=== PATIENT | female | born 1980 | race Caucasian/White ===

== ENCOUNTER 2018-08-08 02:15 | Inpatient (IN) | payer BC ==
[~2018-08-08] VITALS: Ht 162.7 cm; Wt 78.2 kg
[2018-08-08] VITALS (45 sets, daily range): BP systolic 86–164; BP diastolic 44–113; PULSE 67–149; TEMP 97.6–99.7
--- NOTE | 2018-08-08 03:00 | NUR ---
0230- Patient ambulatory to [facility]DR-4 from ED with and staff. Patient complains of contractions every 3-4 minutes starting at 2300. Patient is visibly hunched over in pain and yells out during contractions. Patient denies bleeding, spotting, or leaking of fluids. Membranes were swept on 08/04/18 in the office. Assessment completed. BP increased. Mail Handlers Supervisor and remain at bedside. Patient is requesting to get into [facility]. I informed patient we require a reactive NST before she is able to enter the [facility]. 0245- SVE /-2 by this RN. 0255- updated. Orders for admission entered. 0300- Consents signed. IV started by YOLI Laird.
--- NOTE | 2018-08-08 03:00 | NUR ---
PT UP TO BATHROOM. FOLLOWING BATHROOM, IV ATTEMPTED BUT UNSUCCESSFUL X3. HARDWOOD FINISHER TO COME ATTEMPT.
[2018-08-08 04:10] LABS: BASO % 0.2 % (0.0-2.0); GRAN # 14.2 (1.4-6.5); GRAN % 84.7 % (42.2-75.2); HEMOGLOBIN 14.1 g/dl (12.5-16.0); LYMPH # 1.5 (1.2-3.4); LYMPH % 9.2 % (20.0-51.0); MEAN CELL VOLUME 86 fl (80.0-100.0); MEAN CORPUSCULAR HEMOGLOBIN 31 pg (27.0-31.0); MEAN CORPUSCULAR HGB CONC 36 g/dl (33.0-37.0); MEAN PLATELET VOLUME 10.7 fl (7.4-10.4); MONO # 0.8 (0.1-0.6); MONO % 4.9 % (1.7-9.3); PLATELET COUNT 208 K/mm3 (130-400); RED BLOOD COUNT 4.55 M/mm3 (4.10-5.30); REDCELL DISTRIBUTION WIDTH-CV 12.1 % (11.5-14.5)
--- NOTE | 2018-08-08 04:12 | NUR ---
PT OFF MONITOR AT THIS TIME TO USE HOTTUB.
[2018-08-08] MEDS ORDERED: PRENATAL MVI (04:42)
--- NOTE | 2018-08-08 06:30 | NUR ---
Ambulates to the bathroom and back. Stands at bedside with quantity surveyor and spouse.
--- NOTE | 2018-08-08 06:30 | NUR ---
Sits up in bed, alert. Moans with contractions. Spouse and screen vent binder at bedside. Denies any needs at this time.
--- NOTE | 2018-08-08 07:00 | NUR ---
0715 Dr. Casey here, visits with patient and family. Denies any needs at this time.
--- NOTE | 2018-08-08 07:30 | NUR ---
Continues to breathe through contractions. Spouse and meat and seafood clerk at bedside. Denies any needs at this time.
--- NOTE | 2018-08-08 08:00 | NUR ---
Ambulates to the bathroom and back. Stands at bedside with manager of allied health services.[address] Casey come in and check her. Dr. Casey here, vag exam done. Reports dilated to eight. Encouraged to use different positions because of baby being posterior.
--- NOTE | 2018-08-08 08:30 | NUR ---
0840 Ambulates to the bathroom and back. Uses peanut ball positioned to right side. Continues to breathe through contractions. Denies any needs at this time.
--- NOTE | 2018-08-08 10:30 | NUR ---
[address] Casey to come in and visit about options for pain. Dr. Casey here, visits with patient. 1100 Patient and family decide to get epidural. Anesthesia notified. 1110 Anesthesia here, visits with patient.1122 Space obtained and single shot given per anesthesia Gabriela Joiner c.r.n.a.
--- NOTE | 2018-08-08 11:00 | NUR ---
Continues to sit up for epidural.
--- NOTE | 2018-08-08 11:30 | NUR ---
heart tones down in the sixtys to seventys. O28L on, repositioned right to left, to knee chest. Dr. Casey notified of heart tones. Repositioned to back per Dr. Casey. 1145 Tebuterline 0.25 mg sq given by Lashae garzon. heart rate back to 150s.
--- NOTE | 2018-08-08 11:45 | NUR ---
1155 Anesthesia notified of blood pressure of 106/56. States to given ephedrine. 1200 Ephedrine 10 mg iv given as ordered.
--- NOTE | 2018-08-08 12:15 | NUR ---
Rests in bed, alert. States feeling better. Contractions less frequent.
--- NOTE | 2018-08-08 12:45 | NUR ---
heart tones down in the 90-110. Repositioned patient. Pit off per Dr. Casey. O28L continues to be on.
--- NOTE | 2018-08-08 13:15 | NUR ---
Dr. Casey notified of patients pulse of 130. Temperature checked 99.4 O. Also let her know that heart rate at 160s.
--- NOTE | 2018-08-08 13:45 | NUR ---
Rests in bed with eyes closed. Resperations even and unlabored. Spouse and fibreglass laminator at bedside.
--- NOTE | 2018-08-08 14:30 | NUR ---
1779 Dr. Casey here, visits with patient. Starts pushing with patient.
--- NOTE | 2018-08-08 15:00 | NUR ---
Pushing with contractions. Orders to start pitocin 2 mill units. Pitocin 2 lamine units iv started as ordered.
--- NOTE | 2018-08-08 15:30 | NUR ---
Dr. Casey in room, pushes with patient. heart tones down in the 90-100s for two minutes., then back up to 170s.
--- NOTE | 2018-08-08 15:45 | NUR ---
Pitocin off per Dr. Casey. Visits with patient about section. Patient and spouse agree with section. quality lab technician and nursery, notified about section. 1600 Anesthesia her to give dosing for section. 1607 To o.r. with this nurse, Ada spence, spouse and athletic trainer.
--- NOTE | 2018-08-08 17:45 | NUR ---
To pacu via bed with anesthesia Gabriela. Report given by anesthesia. Monitors on. Father with baby in pacu.
--- NOTE | 2018-08-08 18:00 | NUR ---
Rests in bed with eyes closed. Resperations even and unlabored. Father in chair with baby skin to skin. Dr. Mejia her checking baby.
--- NOTE | 2018-08-08 18:15 | NUR ---
To room 210 via bed with two r.n. Rests in bed with eyes closed. Arouses with verbal stimuli. Spouse at bedside with baby. Target Protection Specialist in room.
--- NOTE | 2018-08-08 22:15 | NUR ---
pt states "i'm still really sleepy, but I really want to get up" Up to bathroom with steady gait. Crow catheter dc'd, pericare performed, clean gown on and back to bed without difficulty.
[2018-08-09 02:30] VITALS: BP 118/71; PULSE 116; TEMP 98.8
--- NOTE | 2018-08-09 02:30 | NUR ---
Pt states "I slept a litlle and I feel much better"
[2018-08-09 07:21] LABS: HEMATOCRIT 34.8 % (37.0-47.0); HEMOGLOBIN 12.6 g/dl (12.5-16.0)
[2018-08-09 07:53] VITALS: BP 111/76; PULSE 98; TEMP 98.7
--- NOTE | 2018-08-09 10:09 | NUR ---
Initial visit; Mom thanked Publishing Specialist for offering congratulations and God's blessings for the of their son. Publishing Specialist thanked family for choosing [facility].
[2018-08-09] MEDS ORDERED: IBU800 M1 PO (10:10)
[2018-08-09] MEDS ORDERED: PERCOCET 325 MG1 TA2 PO (10:11)
[2018-08-09 17:00] VITALS: BP 120/77; PULSE 106; TEMP 98.5
[2018-08-09 19:00] VITALS: BP 127/74; PULSE 99; TEMP 98.5
[2018-08-10 09:00] VITALS: BP 123/87; PULSE 97; TEMP 97.8
== END 2018-08-10 13:25 | disposition home or self-care (01) | DRG 788 ==
LOC: LDRO 02:15 → LDR 03:00 → OB 18:30
PROVIDERS: Obstetrics & Gynecology; ADMIT Obstetrics & Gynecology
PROC: 10D00Z1 Extraction of Products of Conception, Low, Open Approach (ICD-10-PCS; principal; 2018-08-08)
PROC: 0UB10ZZ Excision of Left Ovary, Open Approach (ICD-10-PCS; 2018-08-08)
DX: O76 Abnormality in fetal heart rate and rhythm complicating labor and delivery (principal); Z3A.39 39 weeks gestation of pregnancy; Z37.0 Single live birth; K09.8 Other cysts of oral region, not elsewhere classified; O99.89 Other specified diseases and conditions complicating pregnancy, childbirth and the puerperium; D27.1 Benign neoplasm of left ovary; O62.1 Secondary uterine inertia; O75.89 Other specified complications of labor and delivery
CPT/HCPCS: J0690; J1885; J2175; J2210; J2270; J2370; J2550; J2590; J2795; J3105; J7120

== ENCOUNTER → 2022-02-14 | Outpatient (CLI) | payer BC ==
[~2022-02-14] MED LIST: IBU800 M1 PO; PERCOCET 325 MG1 TA2 PO; PRENATAL MVI
== END ==
LOC: MC.RAD 08:00
DX: N63.10 Unspecified lump in the right breast, unspecified quadrant (principal)